=== PATIENT | female | born 1950 | race Caucasian/White ===

== ENCOUNTER 2023-10-31 14:52 | Emergency (ER) | payer MEDICARE, OTHER ==
[~2023-10-31] VITALS: Ht 177.8 cm; Wt 72.6 kg
[2023-10-31 15:44] LABS: APPEARANCE,URINE CLOUDY (CLEAR); COLOR,URINE YELLOW (YELLOW); PROTEIN,URINE TRACE mg/dl (NEGATIVE); UGLUCOSE NEGATIVE (NEGATIVE)
[2023-10-31 15:45] LABS: BILIRUBIN,URINE NEGATIVE (NEGATIVE); BLOOD, URINE TRACE Ery/uL (NEGATIVE); KETONES,URINE NEGATIVE (NEGATIVE)
[2023-10-31 15:46] LABS: LEUKOCYTE ESTERASE ,URINE 3+ (NEGATIVE); NITRITE, URINE POSITIVE (NEGATIVE); UROBILINOGEN,URINE 0.2 EU/dL (0.2)
[2023-10-31 16:26] LABS: ADD URINE CULTURE YES; BACTERIA,URINE 3+ /HPF (None Seen); RBC,URINE 0-2 /HPF (0-2); SQUAMOUS EPITHELIAL CELL,UR Few /HPF (None Seen)
[2023-10-31] MEDS ORDERED: CEPH250C PO (17:29)
[2023-10-31 18:38] VITALS: BP 136/84; TEMP 98.7; O2SAT 100
== END 2023-10-31 18:39 | disposition home or self-care (01) ==
LOC: ER 14:58
DX: N39.0 Urinary tract infection, site not specified (principal); R30.0 Dysuria; I10 Essential (primary) hypertension; J18.9 Pneumonia, unspecified organism; K21.9 Gastro-esophageal reflux disease without esophagitis; Z88.8 Allergy status to other drugs, medicaments and biological substances
CPT/HCPCS: 81001; 87086-TC